=== PATIENT | male | born 1995 | race Two or more races ===

== ENCOUNTER 2016-10-01 13:37 | Emergency (ER) | payer SELFPAY ==
[2016-10-01 13:42] VITALS: PULSE 101
--- NOTE | 2016-10-01 13:55 | UCPHY ---
H & P Patient Type: Established Chief Complaint Nursing Narrative: c/o LLQ/Testicle lump x 3 days - c/o Pain and nause inc. - denies trauma Time Seen by Provider: 10/01/16 13:40 HPI/ROS: Chief complaint: Left groin and testicle pain HPI: 21-year-old sexually active male presenting complaining of 3-4 days of a painful lump in his left groin a tender mass in his left scrotum. Denies any rashes. No urethral discharge. Is sexually active with a single partner. Does not have a history of sexually transmitted diseases in the past. No fevers or chills. No dysuria. No nausea or vomiting. Denies any trauma or other injury. ROS: 10 point Review of Systems is negative except as noted in the HPI. Past medical history: None Medications: None Allergies: None Social history: Nonsmoker, occasional alcohol Physical exam: Gen: Awake, Alert, No Distress HEENT: Nose: no rhinorrhea Eyes: PERRLA, EOMI Mouth: Moist mucosa Neck: Supple, no JVD Chest: , no distress Heart: Normal pulses, Abd: Soft, non-tender, no guarding Genital: He has mild left inguinal lymphadenopathy. There are no states lesions or rashes. There is no urethral discharge. There is a tender mass in his left scrotum inferior to his left testicle. There is no error overlying erythema. There is normal testicular lie. Normal cremasteric. Ext: no edema, non-tender Skin: no rash Neuro: CN II-XII intact, Sensation grossly intact, Strength 5/5 in bilateral upper and lower extremities - Personal History Current Tetanus Diphtheria and Acellular Pertussis (TDAP): Yes - Medical/Surgical History Hx Asthma: No Hx Chronic Respiratory Disease: No Hx Diabetes: No Hx Cardiac Disease: Yes Hx Renal Disease: No Hx Cirrhosis: No Hx Alcoholism: No Hx HIV/AIDS: No Hx Splenectomy or Spleen Trauma: No Other PMH: Arrhythmia as child. Ruptured ACL. Hypertension "white coat" syndrome - Family History Significant Family History: No pertinent family hx - Social History Smoking Status: Current some day smoker Constitutional: Initial Vital Signs Heart Rate 101 H 10/01/16 13:39 Respiratory Rate 18 10/01/16 13:39 Blood Pressure 134/85 H 10/01/16 13:39 O2 Sat (%) 95 10/01/16 13:39 O2 Delivery Mode Room Air Allergies/Adverse Reactions: No Known Allergies Allergy (Unverified 03/17/15 15:23) Home Medications: Medication Instructions Recorded NK [No Known Home Meds] 07/08/15 Medical Decision Making - Diagnostics Imaging: Imaging Impressions Testicular Ultrasound 10/01/16 13:50 Impression: Left epididymitis. This corresponds to the patient's source of pain and left-sided lump. Findings were discussed with Zion Woodruff MD at 15:13, on 10/01/2016. ED Course/Re-evaluation: Ultrasound is consistent with epididymitis. Will give the patient ceftriaxone and azithromycin here. He has been counseled that his girlfriend in all sexual contacts must be tested and treated as well. He has substantial sexual relations until the that been done. I will refer him for outpatient follow-up in a week to follow his progression of symptoms. - Data Points Laboratory Results: 10/01/16 14:15 C.trachomatis RNA (TMA) Pending N.gonorrhoeae RNA (TMA) Pending Departure - Departure Disposition: Home, Routine, Self-Care Clinical Impression: Epididymitis Condition: Good Instructions: Epididymitis (ED) Additional Instructions: Please make sure that all sexual partners are tested and treated for sexually transmitted diseases. Follow up with primary care in about a week if symptoms are not improving. Referrals: NONE *PRIMARY CARE P,. [Primary Care Provider] - As per Instructions Valentin Hughes MD [Medical Doctor] - As per Instructions - PQRS PQRS Measurement: NA
[2016-10-01] MEDS ORDERED: AZITHROMYCIN 250 MG TAB PO ONE (15:20)
[2016-10-01] MEDS ORDERED: CEFTRIAXONE IM 350 MG/ML SYRINGE IM ONE ×2 (15:20→15:25)
[2016-10-01] MEDS ORDERED: cefTRIAXone 250 MG VIAL ONE (15:23)
[2016-10-01 15:35] VITALS: BP 133/88; RESP 16; TEMP 98.1; O2SAT 96
[2016-10-02 12:04] LABS: CHLAMYDIA AMPLIFICATION GENPRB POSITIVE (NEGATIVE)
== END 2016-10-01 15:39 | disposition home or self-care (01) ==
LOC: CED 13:37
DX: N45.1 Epididymitis (principal)
CPT/HCPCS: 76870-PO; 96372-PO; 99214-PO; G0463-PO; J0696

== ENCOUNTER 2017-10-20 15:19 | Emergency (ER) | payer MEDICAID ==
--- NOTE | 2017-10-20 15:54 | EDPHY ---
General Time Seen by Provider: 10/20/17 15:48 Narrative: CHIEF COMPLAINT: Right shoulder injury with repeat injury HISTORY OF PRESENT ILLNESS: Patient complains of right shoulder pain. He says that he was snowboarding approximately 3 weeks ago when he struck a tree with his right shoulder. He was evaluated there in [place] with an x-ray that reportedly shows AC joint. He was provided a sling and told to follow up with an orthopedist or return there for re-evaluation. He has not yet been able to see an orthopedist. He says his pain improved until 2 days ago when he slipped and fell again, re-injuring the right shoulder. He has severe pain but no numbness , tingling or weakness. He has no head injury or headache. No other associated complaints or modifying factors. He is right-hand dominant ESTABLISHED ORTHOPEDIST: None REVIEW OF SYSTEMS: Ten systems reviewed and are negative unless otherwise noted in the HPI PAST MEDICAL HISTORY: Orthopedic injuries PAST SURGICAL HISTORY: ACL repair remotely SOCIAL HISTORY: Nonsmoker. Lives and works here locally. Originally from [place]. FAMILY HISTORY: Noncontributory EXAMINATION General Appearance: Alert, no distress HEENT: Normocephalic, atraumatic. Pupils equal round. Cardiovascular: Symmetric radial pulses 2+. Brisk cap refill the fingers right hand Neurological: A&O, sensory symmetric, intelligence officer strength is symmetric. Interossei strength is symmetric in both extremities. No wrist drop. Skin: Warm and dry, no rash no petechiae or purpura. No puncture laceration overlying the clavicle or AC joint Extremities: Tenderness of the right shoulder particularly the AC joint. No bony tenderness of the right elbow, wrist or the fingers of the right hand. Range of motion of the wrist is intact range of the shoulder is limited due to pain and improved with passive range of motion. No step-off or apprehension. Mild tenting of the right AC joint. Psychiatric: Mood and affect normal DIFFERENTIAL DIAGNOSES: Including but not limited to sprain, strain, dislocation, separation, fracture MDM: 3:55 p.m. Right shoulder injury with reported diagnosis of AC separation. He is neurovascular intact. He did re-injure the shoulder to the ago, thus I will obtain a repeat x-ray. Will also him for his original x-ray. He is in no acute distress. 4:15 p.m. I have reviewed the patient's original x-ray from September 21 and the x-ray today. I do not appreciate any bony abnormalities. The long on the right side as well aerated visualized with no signs of pneumothorax. Do not appreciate any rib fractures. Clinically the patient is well-appearing with neuro deficits. I will discharge him home with instructions to continue anti-inflammatories. I provided short course of pain medication Flexeril. He has been provided the on- call orthopedic information for outpatient definitive care. We discussed ED precautions. He is comfortable this plan and discharged home stable condition. SUPERVISION: This patient was independently evaluated without direct involvement of or examination by the attending physician. ED Precautions: Worsening pain. Erythema, edema, cyanosis, pallor, paresthesia or anesthesia. I have reviewed the patient's SAUSAGE STUFFER Aware controlled substance report. - Diagnostics Imaging Results: Imaging Impressions Shoulder X-Ray 10/20/17 15:54 Impression: Nothing acute or subacute identified. - History Smoking Status: Current some day smoker - Objective Vital Signs: Initial Vital Signs Temperature (C) 97.9 F 10/20/17 15:22 Heart Rate 93 10/20/17 15:22 Respiratory Rate 18 10/20/17 15:22 Blood Pressure 158/89 H 10/20/17 15:22 O2 Sat (%) 98 10/20/17 15:22 O2 Delivery Mode Room Air Allergies/Adverse Reactions: No Known Allergies Allergy (Unverified 03/17/15 15:23) Home Medications: Medication Instructions Recorded Cyclobenzaprine [Flexeril 10 MG 10 mg PO TID PRN #15 tab 10/20/17 (*)] oxyCODONE HCL/ACETAMINOPHEN 1 each PO Q4-6PRN PRN #9 tablet 10/20/17 [Percocet 5-325 mg Tablet] Departure - Departure Disposition: Home, Routine, Self-Care Clinical Impression: Sprain of shoulder, right Qualifiers: Encounter type: initial encounter Shoulder sprain type: unspecified sprain Qualified Code(s): S43.401A - Unspecified sprain of right shoulder joint, initial encounter Condition: Good Instructions: Shoulder Sprain (ED) Additional Instructions: 1. Ibuprofen 600 mg every 6-8 hours as needed 2. Flexeril as prescribed as needed 3. Percocet pain medication as prescribed as needed 4. Contact the on-call orthopedist as provided for outpatient definitive care 5. ED precautions for worsening pain, numbness, tingling, weakness, difficulty moving or shoulder or wrist the right upper extremity Referrals: Rafael Ludwig MD [Medical Doctor] - As per Instructions Yadiel Pineda MD [Medical Doctor] - As per Instructions Stand Alone Forms: Work Limited Duty, School Excuse, Work Excuse Prescriptions: Cyclobenzaprine [Flexeril 10 MG (*)] 10 mg PO TID PRN #15 tab PRN Reason: Spasms oxyCODONE HCL/ACETAMINOPHEN [Percocet 5-325 mg Tablet] 1 each PO Q4-6PRN PRN #9 tablet PRN Reason: Pain, Breakthrough
[2017-10-20 16:27] VITALS: BP 148/78
== END 2017-10-20 16:27 | disposition home or self-care (01) ==
DX: S43.401A Unspecified sprain of right shoulder joint, initial encounter (principal); F17.200 Nicotine dependence, unspecified, uncomplicated; W01.0XXA Fall on same level from slipping, tripping and stumbling without subsequent striking against object, initial encounter

== ENCOUNTER 2018-04-22 14:00 | Emergency (ER) | payer MEDICAID ==
--- NOTE | 2018-04-22 14:29 | EDPHY ---
General Time Seen by Provider: 04/22/18 14:15 Narrative: CHIEF COMPLAINT: Skateboarding injury, left knee pain, right finger pain HISTORY OF PRESENT ILLNESS: Patient presents by private vehicle with complaints of skateboarding injury with left knee pain and right ring finger pain. He states that he was riding his skateboard 4 days ago when he "got the speed wobbles," causing him to fall at a moderate rate of speed. He landed on his left knee and his right hand in a wrist flexed position. He denies striking his head or losing consciousness. His complaints are right ring finger pain left knee pain. The pain was moderate to severe at 1st. It is now moderate with palpation and movement of each area. Improved at rest. No numbness or tingling. No weakness. No radiating pain. Swelling has gone down but the pain is not improved much. He reports significant difficulty ambulating due to the left knee pain. He denies any head strike or loss of conscious. No chest, neck, back or abdominal pain. No other associated complaints or modifying factors. Right-hand dominant REVIEW OF SYSTEMS: 10 systems were reviewed and negative with the exception of the elements mentioned in the history of present illness. PCP: None locally SPECIALISTS: None PAST MEDICAL HISTORY: Orthopedic injuries ANTICOAGULATED: None PAST SURGICAL HISTORY: Left knee arthroscopy, left knee ACL repair SOCIAL HISTORY: Daily tobacco use. Occasional alcohol marijuana use. [employer] student. Originally from [place], [place] FAMILY HISTORY: Noncontributory EXAMINATION: General Appearance: Alert, no distress Head: normocephalic, atraumatic. No Jackson sign. No raccoon eyes. no depression or deformity. Eyes: Pupils equal and round, no conjunctival pallor or injection ENT, Mouth: Mucous membranes moist Neck: Midline trachea. Normal inspection, supple, non-tender no crepitus or deformity Respiratory: Lungs are clear to auscultation Cardiovascular: Regular rate and rhythm. No murmur. Radial pulses are symmetric at 2+. DP pulses are symmetric 2+. Good signs of perfusion with no cyanosis or pallor Neurological: GCS 15. A&O, nonfocal, light sensory is symmetric upper lower extremities. No wrist drop. No footdrop. Skin: Warm and dry, no rash. Multiple small areas of abrasion that are subacute. No acute laceration or puncture. No cellulitis or signs of infection surrounding these abrasions. Extremities: Swelling and tenderness of the right 4th finger PIP joint. No deformity. Range of motion of the right hand is intact and symmetric to the left. There is tenderness to the left knee prominently over the medial joint line. No crepitus or deformity. Negative Elida. Negative Serenity. Range of motion of the knees symmetric with painful active range of motion of the left knee. Less painful with passive range of motion left knee. All compartments are soft in the left lower extremity right upper extremity. Psychiatric: Mood and affect normal DIFFERENTIAL DIAGNOSES: Including but not limited to knee sprain, patellar fracture, finger fracture, finger sprain, abrasions, dislocation, subluxation, patellar fracture, tibial plateau fracture MDM: 2:15 p.m. Injury from skateboarding injury 4 days ago with left knee pain and right ring finger pain. There is swelling of the right ring finger PIP without dislocation or deformity. There is tenderness of the left knee that is greater with active range of motion than with passive range of motion. There is no instability of either joint. No puncture laceration overlying. No cellulitis. He is neuro intact distal to both injuries. I have ordered x-rays of both areas. Tdap is up-to-date. I have ordered ibuprofen. 3:00 p.m. X-rays as read by me, without radiologist reveal fusion without any acute osseous changes. I have re-evaluated the patient. We discussed splint for the finger pain. We discussed left knee Neymar wrap and crutches. I did offer immobilizer which he has declined. We discuss follow up with Orthopedics outpatient for definitive care given the effusion and difficulty ambulating. We discussed ice, elevation anti-inflammatories short course of Percocet. We discussed ED precautions for worsening symptoms, redness, pain or swelling of lower extremity otherwise. I have answered all his questions. He is discharged home stable condition. 3:20 p.m. X-ray has been read by Radiology as large effusion of the left knee without acute bony changes. SUPERVISION: This patient was independently evaluated without direct involvement of or examination by the attending physician. CONSULTATION: None - Diagnostics Imaging Results: Imaging Impressions Finger X-Ray 04/22/18 14:29 Impression: No acute osseous findings. Knee X-Ray 04/22/18 14:29 Impression: Large joint effusion with no acute osseous findings. If symptoms persist and clinical suspicion warrants, consider MRI. Imaging: I viewed and interpreted images myself - History History Review: I reviewed the patient's medical records Smoking Status: Current some day smoker - Objective Vital Signs: Initial Vital Signs Temperature (C) 97.7 F 04/22/18 14:03 Heart Rate 112 H 04/22/18 14:03 Respiratory Rate 18 04/22/18 14:03 Blood Pressure 156/94 H 04/22/18 14:03 O2 Sat (%) 97 04/22/18 14:03 O2 Delivery Mode Room Air Allergies/Adverse Reactions: No Known Allergies Allergy (Unverified 04/22/18 14:07) Home Medications: Medication Instructions Recorded oxyCODONE HCL/ACETAMINOPHEN 1 each PO Q4-6PRN PRN #5 tablet 04/22/18 [Percocet 5-325 mg Tablet] Medications Given: Discontinued Medications Ibuprofen (Motrin) 600 mg PO EDNOW ONE Stop: 04/22/18 14:31 Last Admin: 04/22/18 14:46 Dose: 600 mg Departure - Departure Disposition: Home, Routine, Self-Care Clinical Impression: Fall from skateboard, initial encounter Sprain of right ring finger Qualifiers: Encounter type: initial encounter Sprain of finger site: interphalangeal joint Qualified Code(s): S63.634A - Sprain of interphalangeal joint of right ring finger, initial encounter Sprain of left knee Qualifiers: Encounter type: initial encounter Involved ligament of knee: unspecified ligament Qualified Code(s): S83.92XA - Sprain of unspecified site of left knee, initial encounter Condition: Good Instructions: Knee Sprain (ED), Finger Sprain (ED) Additional Instructions: 1. Medications as discussed as needed, including ibuprofen 600mg every 8 hours as needed. Do not take in conjunction with anticoagulants or other NSAIDs 2. Follow up with Orthopedics for definitive care 3. Rest, ice and elevation often. 4. ED precautions as discussed for worsening pain, redness, fever, changes in range of motion, changes in sensation Referrals: Terrence Pacheco MD [Medical Doctor] - As per Instructions (For definitive care of the right ring finger injury) Terrence Smith MD [Medical Doctor] - As per Instructions (For definitive care of the left knee pain) Prescriptions: oxyCODONE HCL/ACETAMINOPHEN [Percocet 5-325 mg Tablet] 1 each PO Q4-6PRN PRN #5 tablet PRN Reason: Pain, Breakthrough
[2018-04-22] MEDS ORDERED: IBUPROFEN 600 MG TAB PO ONE (14:30)
[2018-04-22 15:26] VITALS: BP 131/77
== END 2018-04-22 15:24 | disposition home or self-care (01) ==
DX: S63.614A Unspecified sprain of right ring finger, initial encounter (principal); S83.92XA Sprain of unspecified site of left knee, initial encounter; V00.131A Fall from skateboard, initial encounter; Y93.51 Activity, roller skating (inline) and skateboarding

== ENCOUNTER 2018-11-13 05:12 | Emergency (ER) | payer SELFPAY ==
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
[2018-11-13 05:40] LABS: PLATELET COUNT 175 10^3/uL (150-400)
[2018-11-13 07:22] VITALS: BP 134/73
== END 2018-11-13 07:50 | disposition home or self-care (01) ==
LOC: EDUNIT#
DX: S02.2XXA Fracture of nasal bones, initial encounter for closed fracture (principal); S51.831A Puncture wound without foreign body of right forearm, initial encounter; F10.920 Alcohol use, unspecified with intoxication, uncomplicated; Y90.6 Blood alcohol level of 120-199 mg/100 ml; Y04.8XXA Assault by other bodily force, initial encounter
CPT/HCPCS: G0480

== ENCOUNTER 2018-11-15 11:00 | Emergency (ER) | payer MEDICAID, OTHER ==
[2018-11-15 11:11] VITALS: BP 157/106
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
== END 2018-11-15 11:20 | disposition home or self-care (01) ==
DX: S06.0X9A Concussion with loss of consciousness of unspecified duration, initial encounter (principal); S02.2XXD Fracture of nasal bones, subsequent encounter for fracture with routine healing; S05.10XD Contusion of eyeball and orbital tissues, unspecified eye, subsequent encounter; Y04.8XXA Assault by other bodily force, initial encounter

== ENCOUNTER 2018-12-12 01:19 | Emergency (ER) | payer SELFPAY, MEDICAID | END 2018-12-12 06:57 | disposition home or self-care (01) ==